=== PATIENT | male | born 2000 | race Caucasian/White ===

== ENCOUNTER 2020-10-03 10:01 | Emergency (ER) | payer MEDICAID ==
[~2020-10-03] VITALS: Ht 177.8 cm; Wt 83.6 kg
[2020-10-03 10:40] VITALS: BP 146/84
[2020-10-03 12:00] LABS: CLARITY,URINE CLEAR (Clear); COLOR,URINE YELLOW (Yellow); GLUCOSE, URINE NEGATIVE (Neg); KETONES,URINE TRACE mg/dl (Neg); LEUKOCYTE ESTERASE ,URINE NEGATIVE (Neg); NITRITES, URINE NEGATIVE (Neg); OCCULT BLOOD,URINE TRACE-INTACT (Neg); PROTEIN,URINE NEGATIVE (Neg)
[2020-10-03 12:17] LABS: UA COLLECTION TYPE CLN CATCH MIDSTREAM
[2020-10-03 12:22] LABS: SQUAMOUS EPITHELIAL CELL,UR FEW /LPF (FEW)
[2020-10-03 12:23] LABS: BACTERIA,URINE NONE SEEN /HPF (Neg); RBC,URINE 0-2 /HPF (0-2); WBC,URINE 0-4 /HPF (0-4)
== END 2020-10-03 12:52 | disposition home or self-care (01) ==
LOC: ER 10:01
DX: R59.1 Generalized enlarged lymph nodes (principal); R10.32 Left lower quadrant pain; R50.9 Fever, unspecified
CPT/HCPCS: 76857; 81001; 99284